=== PATIENT | male | born 1945 ===

== ENCOUNTER 2017-11-17 05:58 | Day surgery (SDC) | payer MEDICARE ==
[2017-11-16 15:06] VITALS: BMI 21.9
[2017-11-17] MEDS ORDERED: Propofol 10 mg/ml Inj (20 ML) ONE (07:57)
[2017-11-17] MEDS ORDERED: Lactated Ringer's 1,000 ML IV ONE (08:10)
[2017-11-17] MEDS ORDERED: Lactated Ringer's 500 ML IV SCH (08:15)
[2017-11-17 14:09] VITALS: RESP 18; TEMP 98
[2017-11-17 14:10] VITALS: BP 115/75; PULSE 74; O2SAT 100
== END 2017-11-17 13:30 | disposition home or self-care (01) ==
LOC: C.ENDO 05:58
PROVIDERS: ATTEND Internal Medicine Gastroenterology
DX: Z12.11 Encounter for screening for malignant neoplasm of colon (principal); K64.1 Second degree hemorrhoids; K57.30 Diverticulosis of large intestine without perforation or abscess without bleeding; I10 Essential (primary) hypertension; E11.9 Type 2 diabetes mellitus without complications
CPT/HCPCS: 45378; 82948; J2704; J3010; J7120

== ENCOUNTER 2018-04-27 13:47 | Observation (INO) | payer MEDICARE ==
[2018-04-27 13:47] VITALS: BMI 21.9
[2018-04-27 14:45] LABS: BASO % 0.3 % (0.0-2.0); EOS # 0.1 K/uL (0.0-0.7); EOS % 1.3 % (0.0-4.0); HEMOGLOBIN 14.4 g/dL (12.0-18.0); LYMPH # 1.7 K/uL (1.0-4.3); LYMPH % 21.2 % (20.0-40.0); MEAN CELL VOLUME 76.7 fL (80.0-94.0); MEAN CORPUSCULAR HEMOGLOBIN 25.5 pg (27.0-31.0); MEAN CORPUSCULAR HGB CONC 33.3 g/dL (33.0-37.0); MONO # 0.9 K/uL (0.0-0.8); MONO % 11.3 % (0.0-10.0); NEUT # 5.4 K/uL (1.8-7.0); NEUT % 65.9 % (50.0-75.0); RBC 5.66 Mil/uL (4.40-5.90); WHITE BLOOD COUNT 8.2 K/uL (4.8-10.8)
--- NOTE | 2018-04-27 14:56 | RAD ---
Date of service: 04/27/2018 PROCEDURE: CHEST RADIOGRAPH, 1 VIEW HISTORY: Left chest pain COMPARISON: None available. FINDINGS: LUNGS: The lungs are well inflated and clear. PLEURA: No pneumothorax or pleural fluid seen. CARDIOVASCULAR: Normal. OSSEOUS STRUCTURES: No significant abnormalities. VISUALIZED UPPER ABDOMEN: Normal. OTHER FINDINGS: None. IMPRESSION: No active pulmonary disease.
[2018-04-27 14:58] LABS: PROTHROMBIN TIME 12.9 SECONDS (9.7-12.2)
[2018-04-27 14:59] LABS: D DIMER < 200 ng/mlDDU (0-243); INR 1.2; PARTIAL THROMBOPLASTIN TIME 38 SECONDS (21-34)
[2018-04-27 15:22] LABS: BLOOD UREA NITROGEN 16 mg/dL (9-20); CALCIUM 9.5 mg/dl (8.6-10.4); GFR AFRICAN-AMERICAN > 60; GFR NON-AFRICAN AMERICAN > 60
[2018-04-27 15:23] LABS: ALB/GLOB RATIO 1.1 (1.0-2.1); ALBUMIN 4.2 g/dL (3.5-5.0); ALT/SGPT 35 U/L (21-72); AST/SGOT 28 U/L (17-59); B-TYPE NATRIURETIC PEPTIDE 115 pg/mL (0-900)
--- NOTE | 2018-04-27 16:06 | C.PDOC ---
History Of Present Illness Pt c/o left sided chest pain. 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) Current Symptoms Are (Timing): Better Severity: Moderate Quality: "Pain" Modifying Factors: Other Indicated Below Exacerbating Factors: None Alleviating Factors: None Additional History Per: Prior Records Past Medical History Reviewed: Historical Data, Nursing Documentation, Vital Signs Vital Signs: Last Vital Signs Temp 98.4 F 04/27/18 15:44 Pulse 72 04/27/18 15:44 Resp 16 04/27/18 15:44 BP 146/82 04/27/18 15:44 Pulse Ox 99 04/27/18 16:06 - Medical History PMH: Arthritis (BOTH KNEES), HTN Family History: States: Unknown Family Hx - Social History Hx Alcohol Use: No Hx Substance Use: No - Immunization History Hx Tetanus Toxoid Vaccination: No Hx Influenza Vaccination: No Hx Pneumococcal Vaccination: No Review Of Systems Except As Marked, All Systems Reviewed And Found Negative. Constitutional: Negative for: Fever, Weakness Cardiovascular: Positive for: Chest Pain Respiratory: Negative for: Cough, Shortness of Breath, Hemoptysis Gastrointestinal: Negative for: Vomiting, Abdominal Pain Musculoskeletal: Negative for: Neck Pain, Back Pain, Leg Pain Skin: Negative for: Rash Neurological: Negative for: Weakness, Numbness Physical Exam - Physical Exam Appears: Non-toxic, No Acute Distress Skin: Normal Color, Warm, Dry, No Rash Head: Atraumatic, Normacephalic Eye(s): bilateral: PERRL, EOMI Neck: Normal ROM, Supple Chest: Symmetrical, No Deformity Cardiovascular: Rhythm Regular Respiratory: Normal Breath Sounds, No Accessory Muscle Use Gastrointestinal/Abdominal: Soft, No Tenderness Back: No CVA Tenderness Extremity: Normal ROM, No Pedal Edema, No Calf Tenderness Neurological/Psych: Oriented x3, Normal Motor, Normal Sensation ED Course And Treatment - Laboratory Results Result Diagrams: 04/27/18 14:41 04/27/18 14:41 Lab Interpretation: No Acute Changes ECG: Interpreted By Me, Viewed By Me ECG Rhythm: Sinus Rhythm, Nonspecific Changes ECG Interpretation: No Acute Changes Rate From EC O2 Sat by Pulse Oximetry: 99 Pulse Ox Interpretation: Normal - Radiology CXR: Viewed By Me, Read By Radiologist CXR Interpretation: Yes: No Acute Disease Progress - Interventions Interventions:: Observation - Medications Administered Oral: Aspirin (Pt states he already took today) - Data Reviewed Data Reviewed: Lab, Diagnostic imaging, EKG, Old records - Continuity of Care Discussed patient case with:: Patient, ED Nurse, Covering for PMD Disposition Discussed With : Suzan Saavedra Comment: She accepted pt on hospitalist service. Counseled Patient/Family Regarding: Studies Performed, Diagnosis - Disposition Disposition: HOSPITALIZED Disposition Time: 16:27 Condition: STABLE - Clinical Impression Clinical Impression: Acute chest pain
--- NOTE | 2018-04-27 18:49 | CP.PCM.HP ---
History of Present Illness - History of Present Illness History of Present Illness: CC: Chest Pain HPI: Patient is a 72 y.o male who presents to the hospital for evaluation of chest pain that started at 12:30 pm today. Patient states he was at the grocery store when the pain started. He describes the pain to be a sharp and stabbing pain, non-radiating, level of pain described as 2/10. Patient reports this pain remained for 1-2 minutes and after drinking water the pain had stopped. His friend who accompanied him to the grocery suggested he go to the hospital for evaluation and drove him to the emergency department. Since then patient reports intermittent episodes of pain with none lasting longer than 1-2 minutes but have stopped now. Patient reports he has dizziness with the chest pain and currently reports dizziness. Patient states he has been to [facility] about 5 times for evaluation of his dizziness with the most recent admission in October of 2017. Patient states he left the hospital with the only diagnosis of dizziness. Patient states he has a bushwalking guide, Dr. Sandy , and neurologist, unknown, who he follows up outpatient. PMH- HTN, DM2, Arthritis PSH- hernia repair (2014, [facility]); eye surgery ([place]) FH- Mom (cancer of uterus?), Dad (brain tumor) Meds- Losartan 30mg, ASA 81mg, Fish Oils Allergies: NKDA Social Hx: social drinker; denies tobacco and drug use PMD: Libertad Bobo Code: Full Code ROS: Pertinent Positives: intermittent chest pain, dizziness Pertinent negatives: SOB, palpitations, n/v, constipation or diarrhea, diaphoresis, headaches, vision changes, neck pain Present on Admission - Present on Admission Any Indicators Present on Admission: No History of DVT/PE: No History of Uncontrolled Diabetes: No Urinary Catheter: No Decubitus Ulcer Present: No Review of Systems - Constitutional Constitutional: absent: Chills, Excessive Sweating, Fever, Headache - EENT Eyes: absent: Blurred Vision, Change in Vision Nose/Mouth/Throat: absent: Neck Pain - Cardiovascular Cardiovascular: Chest Pain. absent: Diaphoresis, Dyspnea, Palpitations, Pedal Edema - Respiratory Respiratory: absent: Cough, Dyspnea, Wheezing - Gastrointestinal Gastrointestinal: absent: Abdominal Pain, Constipation, Diarrhea, Nausea, Vomiting - Genitourinary Genitourinary: absent: Change in Urinary Stream, Difficulty Urinating - Neurological Neurological: Dizziness. absent: Headaches, Loss of Vision - Psychiatric Psychiatric: absent: Anxiety, Confusion Past Patient History - Past Medical History & Family History Past Medical History?: Yes - Past Social History Smoking Status: Never Smoked - CARDIAC Hx Hypertension: Yes - PULMONARY Hx Respiratory Disorders: No - NEUROLOGICAL Hx Neurological Disorder: No - HEENT Hx HEENT Problems: Yes Hx Cataracts: Yes (bilateral) - RENAL Hx Chronic Kidney Disease: No - ENDOCRINE/METABOLIC Hx Endocrine Disorders: Yes Hx Diabetes Mellitus Type 2: Yes (not taking meds) - HEMATOLOGICAL/ONCOLOGICAL Hx Blood Disorders: Yes Hx Hepatitis C: Yes - INTEGUMENTARY Hx Dermatological Problems: No - MUSCULOSKELETAL/RHEUMATOLOGICAL Hx Arthritis: Yes (BOTH KNEES) - GASTROINTESTINAL Hx Gastrointestinal Disorders: No - GENITOURINARY/GYNECOLOGICAL Hx Genitourinary Disorders: No - PSYCHIATRIC Hx Substance Use: No - SURGICAL HISTORY Hx Surgeries: Yes Hx Herniorrhaphy: Yes (GROIN) - ANESTHESIA Hx Anesthesia: Yes Hx Anesthesia Reactions: No Hx Malignant Hyperthermia: No Meds Allergies/Adverse Reactions: Allergies Allergy/AdvReac Type Severity Reaction Status Date / Time No Known Allergies Allergy Verified 04/27/18 13:51 Physical Exam - Constitutional Appears: Non-toxic, No Acute Distress - Head Exam Head Exam: NORMAL INSPECTION, NORMOCEPHALIC - Eye Exam Eye Exam: Normal appearance. absent: Nystagmus, Scleral icterus - ENT Exam ENT Exam: Mucous Membranes Moist, Normal Exam - Respiratory Exam Respiratory Exam: Clear to Auscultation Bilateral, NORMAL BREATHING PATTERN. absent: Wheezes, Respiratory Distress - Cardiovascular Exam Cardiovascular Exam: REGULAR RHYTHM, +S1, +S2. absent: Systolic Murmur - GI/Abdominal Exam GI & Abdominal Exam: Normal Bowel Sounds, Soft. absent: Distended, Guarding, Tenderness - Extremities Exam Extremities exam: Positive for: normal inspection. Negative for: calf tenderness, pedal edema - Neurological Exam Neurological exam: Alert, Oriented x3 - Psychiatric Exam Psychiatric exam: Normal Affect, Normal Mood - Skin Skin Exam: Intact, Normal Color Results - Vital Signs Recent Vital Signs: Last Vital Signs Temp 98.4 F 04/27/18 15:44 Pulse 72 04/27/18 15:44 Resp 16 04/27/18 15:44 BP 146/82 04/27/18 15:44 Pulse Ox 99 04/27/18 16:27 - Labs Result Diagrams: 04/27/18 14:41 04/27/18 14:41 Labs: Laboratory Results - last 24 hr 04/27/18 04/27/18 04/27/18 14:41 14:41 14:41 WBC 8.2 RBC 5.66 Hgb 14.4 Hct 43.3 MCV 76.7 L MCH 25.5 L MCHC 33.3 RDW 15.0 H Plt Count 393 MPV 9.0 Neut % (Auto) 65.9 Lymph % (Auto) 21.2 [place] % (Auto) 11.3 H Eos % (Auto) 1.3 Baso % (Auto) 0.3 Neut # (Auto) 5.4 Lymph # (Auto) 1.7 [place] # (Auto) 0.9 H Eos # (Auto) 0.1 Baso # (Auto) 0.0 PT 12.9 H INR 1.2 APTT 38 H D-Dimer, Quantitative < 200 Sodium 144 Potassium 4.4 Chloride 105 Carbon Dioxide 27 Anion Gap 16 BUN 16 Creatinine 1.0 Est GFR ( Amer) > 60 Est GFR (Non-Af Amer) > 60 Random Glucose 116 H Calcium 9.5 Total Bilirubin 0.5 AST 28 ALT 35 Alkaline Phosphatase 83 Troponin I < 0.0120 NT-Pro-B Natriuret Pep 115 Total Protein 7.9 Albumin 4.2 Globulin 3.7 Albumin/Globulin Ratio 1.1 Assessment & Plan - Assessment and Plan (Free Text) Assessment: Chest Pain 04/27/18 EKG- No ST elevations noted; repeat EKGs ordered x2 q6hr Troponin x 1 negative; Troponins x2 q6hr Lipid Panel pending TSH and Free T4 pending Echo pending Dizziness Echo pending [facility] workup release pending CBC, CMP pending Fall risk protocol HTN Losartan 25mg po daily DM Type 2 A1C pending ISS- low dose protocol ACHS Hypogylcemia protocl Forest Officer consult ordered- Hypertensive Diabetic Prophylaxis Lovenox 40 subq daily SCDs Aspirin 81mg po daily GI: Not indivated at this time Shilpi Walker PGY-1
[2018-04-27] MEDS ORDERED: Dextrose 50% SYRINGE Inj (50 ml) IV PRN (18:58)
[2018-04-27] MEDS ORDERED: Glucagon Recombinant 1 mg Inj IM PRN (18:58)
[2018-04-27 19:16] VITALS: RESP 20
[2018-04-27 19:40] LABS: BASO # 0.1 K/uL (0.0-0.2); BASO % 0.7 % (0.0-2.0); EOS # 0.1 K/uL (0.0-0.7); EOS % 1.3 % (0.0-4.0); LYMPH # 2.1 K/uL (1.0-4.3); LYMPH % 25.4 % (20.0-40.0); MEAN CELL VOLUME 76.9 fL (80.0-94.0); MEAN CORPUSCULAR HEMOGLOBIN 25.1 pg (27.0-31.0); MEAN CORPUSCULAR HGB CONC 32.6 g/dL (33.0-37.0); MEAN PLATELET VOLUME 8.3 fL (7.2-11.7); MONO # 0.9 K/uL (0.0-0.8); MONO % 10.6 % (0.0-10.0); NEUT # 5.1 K/uL (1.8-7.0); NRBC % 0.2 % (0.0-2.0); RBC 5.57 Mil/uL (4.40-5.90); RED CELL DISTRIBUTION WIDTH 14.6 % (11.5-14.5); WHITE BLOOD COUNT 8.2 K/uL (4.8-10.8)
[2018-04-27] MEDS: (Novolog) Insulin Aspart, Recombinant 100 u/ml 10 ml vial SC SCH (22:54)
[2018-04-28] MEDS: (Novolog) Insulin Aspart, Recombinant 100 u/ml 10 ml vial SC SCH ×2 (07:19→11:53)
[2018-04-28 07:21] LABS: ALB/GLOB RATIO 1.2 (1.0-2.1); ALBUMIN 3.9 g/dL (3.5-5.0); ALT/SGPT 29 U/L (21-72); AST/SGOT 32 U/L (17-59); BLOOD UREA NITROGEN 20 mg/dL (9-20); CALCIUM 9.3 mg/dl (8.6-10.4); GFR AFRICAN-AMERICAN > 60; GFR NON-AFRICAN AMERICAN > 60; HDL CHOLESTEROL 43 mg/dL (30-70)
[2018-04-28 07:31] LABS: LDL CHOLESTEROL 89 mg/dL (0-129)
[2018-04-28 08:39] VITALS: BP 157/95; PULSE 62; TEMP 97.6; O2SAT 97
[2018-04-28] MEDS ORDERED: Enoxaparin 40 mg Syringe SC SCH (10:00)
[2018-04-28] MEDS ORDERED: Aspirin 325 mg EC Tablets PO SCH (10:00)
[2018-04-28 11:21] LABS: BASO # 0.1 K/uL (0.0-0.2); BASO % 0.9 % (0.0-2.0); EOS # 0.1 K/uL (0.0-0.7); EOS % 1.5 % (0.0-4.0); HEMOGLOBIN 15.3 g/dL (12.0-18.0); LYMPH # 2.2 K/uL (1.0-4.3); LYMPH % 23.9 % (20.0-40.0); MEAN CELL VOLUME 76.9 fL (80.0-94.0); MEAN CORPUSCULAR HEMOGLOBIN 25.6 pg (27.0-31.0); MEAN CORPUSCULAR HGB CONC 33.3 g/dL (33.0-37.0); MEAN PLATELET VOLUME 9.4 fL (7.2-11.7); MONO # 0.9 K/uL (0.0-0.8); MONO % 9.7 % (0.0-10.0); NEUT # 5.9 K/uL (1.8-7.0); RBC 5.96 Mil/uL (4.40-5.90); RED CELL DISTRIBUTION WIDTH 14.7 % (11.5-14.5); WHITE BLOOD COUNT 9.3 K/uL (4.8-10.8)
--- NOTE | 2018-04-28 19:24 | CP.PCM.DIS ---
Provider - Provider Date of Admission: 04/27/18 16:28 Attending physician: Suzan Saavedra DO Time Spent in preparation of Discharge (in minutes): 45 Diagnosis - Discharge Diagnosis (1) Acute chest pain Status: Resolved Hospital Course - Lab Results Lab Results: Most Recent Lab Values WBC 9.3 K/uL (4.8-10.8) 04/28/18 11:16 RBC 5.96 Mil/uL (4.40-5.90) H 04/28/18 11:16 Hgb 15.3 g/dL (12.0-18.0) 04/28/18 11:16 Hct 45.8 % (35.0-51.0) 04/28/18 11:16 MCV 76.9 fL (80.0-94.0) L 04/28/18 11:16 MCH 25.6 pg (27.0-31.0) L 04/28/18 11:16 MCHC 33.3 g/dL (33.0-37.0) 04/28/18 11:16 RDW 14.7 % (11.5-14.5) H 04/28/18 11:16 Plt Count 397 K/uL (130-400) 04/28/18 11:16 MPV 9.4 fL (7.2-11.7) 04/28/18 11:16 Neut % (Auto) 64.0 % (50.0-75.0) 04/28/18 11:16 Lymph % (Auto) 23.9 % (20.0-40.0) 04/28/18 11:16 [place] % (Auto) 9.7 % (0.0-10.0) 04/28/18 11:16 Eos % (Auto) 1.5 % (0.0-4.0) 04/28/18 11:16 Baso % (Auto) 0.9 % (0.0-2.0) 04/28/18 11:16 Neut # (Auto) 5.9 K/uL (1.8-7.0) 04/28/18 11:16 Lymph # (Auto) 2.2 K/uL (1.0-4.3) 04/28/18 11:16 [place] # (Auto) 0.9 K/uL (0.0-0.8) H 04/28/18 11:16 Eos # (Auto) 0.1 K/uL (0.0-0.7) 04/28/18 11:16 Baso # (Auto) 0.1 K/uL (0.0-0.2) 04/28/18 11:16 PT 12.9 SECONDS (9.7-12.2) H 04/27/18 14:41 INR 1.2 04/27/18 14:41 APTT 38 SECONDS (21-34) H 04/27/18 14:41 D-Dimer, Quantitative < 200 ng/mlDDU (0-243) 04/27/18 14:41 Sodium 143 mmol/L (132-148) 04/28/18 07:04 Potassium 4.3 mmol/L (3.6-5.2) 04/28/18 07:04 Chloride 102 mmol/L (98-107) 04/28/18 07:04 Carbon Dioxide 29 mmol/L (22-30) 04/28/18 07:04 Anion Gap 16 (10-20) 04/28/18 07:04 BUN 20 mg/dL (9-20) 04/28/18 07:04 Creatinine 1.1 mg/dL (0.8-1.5) 04/28/18 07:04 Est GFR ( Amer) > 60 04/28/18 07:04 Est GFR (Non-Af Amer) > 60 04/28/18 07:04 POC Glucose (mg/dL) 93 mg/dL (65-110) 04/28/18 11:44 Random Glucose 114 mg/dL (75-110) H 04/28/18 07:04 Hemoglobin A1c 6.4 % (4.2-6.5) 04/27/18 19:34 Calcium 9.3 mg/dl (8.6-10.4) 04/28/18 07:04 Phosphorus 3.7 mg/dL (2.5-4.5) 04/27/18 19:34 Magnesium 1.9 mg/dL (1.6-2.3) 04/27/18 19:34 Total Bilirubin 0.6 mg/dL (0.2-1.3) 04/28/18 07:04 AST 32 U/L (17-59) 04/28/18 07:04 ALT 29 U/L (21-72) 04/28/18 07:04 Alkaline Phosphatase 81 U/L (38-126) 04/28/18 07:04 Troponin I < 0.0120 ng/mL (0.00-0.120) 04/28/18 03:37 NT-Pro-B Natriuret Pep 115 pg/mL (0-900) 04/27/18 14:41 Total Protein 7.1 g/dL (6.3-8.3) 04/28/18 07:04 Albumin 3.9 g/dL (3.5-5.0) 04/28/18 07:04 Globulin 3.3 gm/dL (2.2-3.9) 04/28/18 07:04 Albumin/Globulin Ratio 1.2 (1.0-2.1) 04/28/18 07:04 Triglycerides 68 mg/dL (0-149) 04/28/18 07:04 Cholesterol 151 mg/dL (0-199) 04/28/18 07:04 LDL Cholesterol Direct 89 mg/dL (0-129) 04/28/18 07:04 HDL Cholesterol 43 mg/dL (30-70) 04/28/18 07:04 Free T4 0.96 ng/dL (0.78-2.19) 04/27/18 19:34 TSH 3rd Generation 0.79 mIU/L (0.46-4.68) 04/27/18 19:34 - Hospital Course Hospital Course: PMH- HTN, DM2, Arthritis PSH- hernia repair (2015, [facility]); eye surgery ([place]) FH- Mom (cancer of uterus?), Dad (brain tumor) Meds- Losartan 30mg, ASA 81mg, Fish Oils Allergies: NKDA Social Hx: social drinker; denies tobacco and drug use PMD: Libertad Bobo Code: Full Code Upon Admission: Patient is a 72 y.o male who presents to the hospital for evaluation of chest pain that started at 12:30 pm today. Patient states he was at the grocery store when the pain started. He describes the pain to be a sharp and stabbing pain, non-radiating, level of pain described as 2/10. Patient reports this pain remained for 1-2 minutes and after drinking water the pain had stopped. [facility] evaluation and drove him to the emergency department. Since then patient reports intermittent episodes of pain with none lasting longer than 1-2 minutes but have stopped now. Patient reports he has dizziness with the chest pain and currently reports dizziness. Patient states he has been to [facility] about 5 times for evaluation of his dizziness with the most recent admission in October of 2017. Patient states he left the hospital with the only diagnosis of dizziness. Patient states he has a legal administrative secretary, Dr. Sandy , and neurologist, unknown, who he follows up outpatient. Hospital Course: Patient is a 72 y.o male who presents to the hospital for evaluation for dizziness and chest pain; EKG x 3 and ARAVIND x3 negative; Patient' s chest pain and dizziness resolved soon after admission into ED; instructed to followup with PMD and legal administrative secretary Patient is stable for discharge at home as per Dr. Saavedra. Patient is to followup with PMD, Dr. Bobo, in 1 week after discharge. Patient is to followup with legal administrative secretary, Dr. Ochoa, in 1 week after discharge. Patient is to resume all home medications, no medication adjustments were made in this admission. Patient is instructed to return to the hospital if symptoms recur or worsen. Patient understands and agrees to the plan as above. Discharge Exam - Head Exam Head Exam: NORMAL INSPECTION, NORMOCEPHALIC - Eye Exam Eye Exam: EOMI, Normal appearance. absent: Nystagmus, Scleral icterus Pupil Exam: NORMAL ACCOMODATION - Respiratory Exam Respiratory Exam: NORMAL BREATHING PATTERN. absent: Rales, Rhonchi, Wheezes, Respiratory Distress - Cardiovascular Exam Cardiovascular Exam: REGULAR RHYTHM, +S1, +S2 - GI/Abdominal Exam GI & Abdominal Exam: Normal Bowel Sounds, Soft. absent: Distended, Firm, Tenderness - Extremities Exam Extremities exam: normal inspection - Neurological Exam Neurological exam: Alert, Normal Gait, Oriented x3 - Psychiatric Exam Psychiatric exam: Normal Affect, Normal Mood - Skin Skin Exam: Intact, Normal Color Discharge Plan - Follow Up Plan Condition: STABLE Disposition: HOME/ ROUTINE Instructions: Heart Healthy Diet, Chest Pain (DC) Additional Instructions: Patient is stable for discharge at home as per Dr. Saavedra. Patient is to followup with PMD, Dr. Bobo, in 1 week after discharge. Patient is to followup with legal administrative secretary, Dr. Ochoa, in 1 week after discharge. Patient is to resume all home medications, no medication adjustments were made in this admission. Patient is instructed to return to the hospital if symptoms recur or worsen. Patient understands and agrees to the plan as above. Referrals: Malachi Ochoa MD [Staff Provider] - 1 Week Libertad Bobo MD [Staff Provider] - 1 Week
--- NOTE | 2018-04-28 20:38 | CARD ---
APPROVED REPORT Date of service: 04/28/2018 EXAM: Two-dimensional and M-mode echocardiogram with Doppler and color Doppler. Other Information Quality : GoodRhythm : INDICATION Chest Pain RISK FACTORS Hypertension Diabetes 2D DIMENSIONS IVSd1.1 (0.7-1.1cm)Aortic Root (2D)3.3 (2.0-3.7cm) LVDd4.2 (3.9-5.9cm)PWd1.1 (0.7-1.1cm) LVDs2.4 (2.5-4.0cm)FS (%) 42.7 % LVEF (%)74.2 (>50%) M-Mode DIMENSIONS RVDd1.89 (2.1-3.2cm)Left Atrium (MM)3.72 (2.5-4.0cm) IVSd1.33 (0.7-1.1cm)Aortic Root3.11 (2.2-3.7cm) LVDd4.62 (4.0-5.6cm)Aortic Cusp Exc.2.09 (1.5-2.0cm) PWd1.20 (0.7-1.1cm)FS (%) 42 % LVDs2.70 (2.0-3.8cm)LVEF (%)73 (>50%) Mitral Valve MV E Gdtctxfx56.2cm/sMV A Jmkarggw93.7cm/sE/A ratio0.9 TDI E/Lateral E'0.0E/Medial E'0.0 Tricuspid Valve TR Peak [id number]/sTR Peak Gr.[id number] LEFT VENTRICLE The left ventricle is normal size. There is normal left ventricular wall thickness. The left ventricular function is normal. The left ventricular ejection fraction is within the normal range. about 65% No regional wall motion abnormalities noted. Transmitral Doppler flow pattern is Grade I-abnormal relaxation pattern. No left ventricle thrombus noted on this study. There is no ventricular septal defect visualized. There is no left ventricular aneurysm. There is no mass noted in the left ventricle. RIGHT VENTRICLE The right ventricle is normal size. There is normal right ventricular wall thickness. The right ventricular systolic function is normal. ATRIA The left atrium size is normal. The right atrium size is normal. The interatrial septum is intact with no evidence for an atrial septal defect. AORTIC VALVE The aortic valve is normal in structure and function. No aortic regurgitation is present. There is no aortic valvular stenosis. There is no aortic valvular vegetation. MITRAL VALVE The mitral valve is normal in structure and function. There is no evidence of mitral valve prolapse. There is no mitral valve stenosis. There is no mitral valve regurgitation noted. TRICUSPID VALVE The tricuspid valve is normal in structure and function. There is no tricuspid valve regurgitation noted. There is no tricuspid valve prolapse or vegetation. There is no tricuspid valve stenosis. PULMONIC VALVE The pulmonary valve is normal in structure and function. There is no pulmonic valvular regurgitation. There is no pulmonic valvular stenosis. GREAT VESSELS The aortic root is normal in size. The ascending aorta is normal in size. The pulmonary artery is normal. The IVC is normal in size and collapses >50% with inspiration. PERICARDIAL EFFUSION The pericardium appears normal. There is no pleural effusion. <Conclusion> The left ventricular function is normal. Angelique Doppler.
--- NOTE | 2018-04-28 20:47 | CARD ---
APPROVED REPORT Date of service: 04/27/2018 EKG Measurement Heart [id number] <Conclusion> Normal sinus rhythm Minimal voltage criteria for LVH, may be normal variant Borderline ECG
--- NOTE | 2018-04-28 20:52 | CARD ---
APPROVED REPORT Date of service: 04/27/2018 EKG Measurement Heart [id number] <Conclusion> Normal sinus rhythm Minimal voltage criteria for LVH, may be normal variant Borderline ECG
--- NOTE | 2018-04-29 14:53 | CARD ---
APPROVED REPORT Date of service: 04/28/2018 EKG Measurement Heart [id number] <Conclusion> Sinus bradycardia Moderate voltage criteria for LVH, may be normal variant Borderline ECG
== END 2018-04-28 13:10 | disposition home or self-care (01) ==
LOC: C.ER 13:47 → C.9E 16:28 → C.6T 19:06
PROVIDERS: ADMIT Hospitalist; ATTEND Hospitalist
DX: R07.9 Chest pain, unspecified (principal); E11.9 Type 2 diabetes mellitus without complications; I10 Essential (primary) hypertension; Z79.82 Long term (current) use of aspirin; Z79.899 Other long term (current) drug therapy
CPT/HCPCS: 36415; 71045; 80053; 80061; 82948; 83036; 83735; 83880; 84100; 84439; 84443; 84484; 85025; 85378; 85610; 85730; 93005; 93306; 99285; G0378; J1650